=== PATIENT | male | born 1980 | race Caucasian/White ===

== ENCOUNTER 2019-03-03 06:05 | Day surgery (SDC) | payer OTHER ==
[~2019-03-03] VITALS: Ht 177.8 cm; Wt 81.6 kg
[2019-03-03 07:37] LABS: Basophils # (auto) 0.1 uL; Basophils % (auto) 0.6 % (0.0-2.0); Eosinophils # (auto) 0.1 uL; Eosinophils % (auto) 1.2 % (0.0-7.0); Hematocrit 44.3 % (41.0-53.0); Hemoglobin 15.4 g/dL (13.5-17.5); Lymphocytes # (auto) 2.8 uL; Lymphocytes % (auto) 26.6 % (10.0-50.0); Mean Corpuscular Hemoglobin 30.8 pg (28.0-32.0); Mean Corpuscular Hgb Conc. 34.7 g/dL (32.0-36.0); Mean Corpuscular Volume 88.7 fL (80.0-100.0); Monocytes # (auto) 0.8 uL; Monocytes % (auto) 7.8 % (0.0-12.0); Neutrophils # (auto) 6.8 uL; Neutrophils % (auto) 63.8 % (37.0-80.0); Platelet Count (auto) 272 10^3/uL (140-450); Red Cell Distribution Width 13.9 % (11.8-14.3); White Blood Cell 10.6 10^3/uL (4.4-10.8)
[2019-03-03] MEDS ORDERED: FLUMAZENIL 0.1 MG/ML INJ 10ML MDV IV ONE (08:22)
[2019-03-03] MEDS ORDERED: SODIUM CHLORIDE LOCK 10 ML ONE (08:22)
[2019-03-03] MEDS ORDERED: NALOXONE HCL 0.4 MG/ML VIAL ONE (08:22)
[2019-03-03] MEDS ORDERED: diphenhdrAMINE HCL 50 MG/1 ML VL ONE (08:23)
[2019-03-03 08:53] LABS: Partial Thromboplastin Time 26.6 sec (23.64-32.05)
[2019-03-03] MEDS: fentaNYL CITRATE 100 MCG/2 ML VL ONE ×2 (09:07→09:10)
[2019-03-03] MEDS: MIDAZOLAM HCL 5 MG/ML-1ML VIAL ONE ×2 (09:07→09:10)
[2019-03-03 10:01] VITALS: BP 129/87
== END 2019-03-03 10:06 | disposition home or self-care (01) ==
LOC: GI 06:05
PROVIDERS: ATTEND Internal Medicine Gastroenterology
DX: K51.40 Inflammatory polyps of colon without complications (principal); K51.911 Ulcerative colitis, unspecified with rectal bleeding; E66.3 Overweight; Z79.899 Other long term (current) drug therapy; Z68.25 Body mass index [BMI] 25.0-25.9, adult
CPT/HCPCS: 36415; 45380; 85025; 85610; 85730; J1200; J2250; J3010; J7030; 99152